=== PATIENT | male | born 1990 | race African-American/Black ===

== ENCOUNTER 2019-09-09 14:29 | Emergency (ER) | payer MEDICARE ==
[2019-09-09] MEDS ORDERED: Ibuprofen 800 MG TAB ONE (14:57)
[2019-09-09 15:13] LABS: Bilirubin Negative (Negative); Blood, Urine Negative (Negative); Clarity Clear (Clear); Glucose, Urine (Dipstick) Normal (Negative); Leukocyte Negative Leu/uL (Negative); Nitrite Negative (Negative); Protein, Urine (Dipstick) Negative (Neg-Trace); Urobilinogen Normal mg/dL (Less than 2)
--- NOTE | 2019-09-09 16:03 | ULT ---
EXAM: US Testicular W Doppler PROVIDED CLINICAL HISTORY: Scrotal pain. COMPARISON: None FINDINGS: The testicles demonstrate a normal sonographic appearance bilaterally without evidence of testicular mass. The testicles have a symmetric and homogeneous echotexture bilaterally. Arterial and venous flow is seen in each testicle on spectral analysis and color flow evaluation. The right epididymis demonstrates a normal sonographic appearance. A small 0.4 cm anechoic cystic les ion is seen in the left epididymis likely due to tiny epididymal cyst. Small amount of fluid is seen adjacent to each testicle likely physiologic in origin. IMPRESSION: Normal appearing bilateral testicles with arterial flow documented in each testicle.
[2019-09-11 19:25] LABS: Chlam.trachomatis by PCR,Urine Not Detected (NotDetected)
== END 2019-09-09 16:30 | disposition home or self-care (01) ==
LOC: EDBD 14:29 → ERS 14:29
DX: N50.812 Left testicular pain (principal); N50.811 Right testicular pain
CPT/HCPCS: 76870; 81003; 87491; 87591; 93976